=== PATIENT | female | born 1965 | race Caucasian/White ===

== ENCOUNTER 2017-11-20 05:39 | Inpatient (IN) | payer BC ==
[2017-11-20] MEDS ORDERED: LIDOCAINE 2% (SDV) 5 ML INJ (07:00)
[2017-11-20] MEDS ORDERED: GELATIN SIZE 100 SPONGE (07:06)
[2017-11-20] MEDS ORDERED: CEFAZOLIN 1 GM INJ (07:33)
[2017-11-20] MEDS ORDERED: PROPOFOL 20 ML ×2 (07:33→08:02)
[2017-11-20] MEDS ORDERED: METOCLOPRAMIDE 10 MG INJ (07:33)
[2017-11-20] MEDS ORDERED: MIDAZOLAM 1 MG/ML 2 ML INJ (07:33)
[2017-11-20] MEDS ORDERED: ONDANSETRON 4 MG INJ (07:33)
[2017-11-20] MEDS ORDERED: SUCCINYLCHOLINE CHLORIDE 100 MG/5 ML SYG IV (07:43)
[2017-11-20] MEDS ORDERED: ROCURONIUM 50 MG INJ (07:45)
[2017-11-20] MEDS ORDERED: FENTAnyl 50 MCG/ML VIAL (08:03)
[2017-11-20] MEDS ORDERED: ACETAMINOPHEN 1000MG/100ML IV 100 ML (08:07)
[2017-11-20] MEDS ORDERED: HYDROmorphONE 2 MG/ML SYG (08:26)
[2017-11-20] MEDS: THROMBIN 5000 UNIT VIAL (09:32)
[2017-11-20] MEDS: POLYMYXIN/BACITRACIN 1L IRRIG (09:32)
[2017-11-20] MEDS ORDERED: hydrALAzine 20 MG INJ IV (10:30)
[2017-11-20] MEDS ORDERED: HYDROmorphONE 1 MG/5 ML IV SYRINGE IV ×3 (10:30)
[2017-11-20] MEDS ORDERED: DIPHENHYDRAMINE 50 MG INJ IV (10:30)
[2017-11-20] MEDS ORDERED: MEPERIDINE 25 MG INJ IV (10:30)
[2017-11-20] MEDS ORDERED: LABETALOL HCL 20MG INJ IV (10:30)
[2017-11-20] MEDS ORDERED: ONDANSETRON 4 MG INJ IV ×3 (10:30→13:30)
[2017-11-20] MEDS ORDERED: EPHEDrine SULFATE 50 MG/5 ML SYG IV (10:30)
[2017-11-20] MEDS ORDERED: DEXAMETHASONE 4 MG/ML 1 ML INJ (11:10)
[2017-11-20] MEDS ORDERED: ZOLPIDEM 5 MG TAB PO (13:00)
[2017-11-20] MEDS ORDERED: BISACODYL 10 MG SUPP PR ×2 (13:00→13:30)
[2017-11-20] MEDS ORDERED: ACETAMINOPHEN 325 MG TAB PO ×2 (13:00→13:30)
[2017-11-20] MEDS ORDERED: HYDROCODONE/APAP (5/325) TAB PO ×3 (13:00→13:30)
[2017-11-20] MEDS ORDERED: CYCLOBENZAPRINE 10 MG TAB PO (13:00)
[2017-11-20] MEDS ORDERED: DIPHENHYDRAMINE 25 MG CAP PO (13:00)
[2017-11-20] MEDS ORDERED: NALOXONE (0.4 MG/ML) INJ IV (13:00)
[2017-11-20] MEDS ORDERED: HYDROmorphONE 0.5 MG/0.5 ML SYG IV (13:00)
[2017-11-20 13:25] LABS: ADD MAN DIFF? NO
[2017-11-20 13:27] LABS: BASOPHILS % 0.2 % (0.0-2.0); EOSINOPHILS % 0.1 % (0.0-7.0); HEMATOCRIT 36.8 % (37.0-47.0); HEMOGLOBIN 12.3 g/dl (12.0-16.0); HOLD TRANSMISSIONS 1; LYMPHOCYTES # 1.3 10^3/ul (0.8-2.9); LYMPHOCYTES % 10.4 % (15.0-51.0); MEAN CORPUSCULAR HEMOGLOBIN 30.5 pg (29.0-33.0); MEAN CORPUSCULAR HGB CONC 33.4 g/dl (32.0-37.0); MEAN CORPUSCULAR VOLUME 91.3 fl (82.0-101.0); MEAN PLATELET VOLUME 9.4 fl (7.4-10.4); MONOCYTE # 0.4 10^3/ul (0.3-0.9); MONOCYTES % 3.4 % (0.0-11.0); NEUTROPHIL # 10.4 10^3/ul (1.6-7.5); NEUTROPHILS % 85.5 % (39.0-77.0); PLATELET COUNT 238 10^3/UL (140-415); RED BLOOD COUNT 4.03 10^6/ul (4.20-5.40); RED CELL DISTRIBUTION WIDTH 12.5 % (11.5-14.5)
[2017-11-20 13:27] LABS: WHITE BLOOD COUNT 12.2 10^3/ul (4.8-10.8)
[2017-11-20] MEDS ORDERED: DOCUSATE SODIUM 100 MG CAP PO (13:30)
[2017-11-20] MEDS ORDERED: ACETAMINOPHEN 650 MG SUPP PR (13:30)
[2017-11-20] MEDS ORDERED: NACL 0.9% 3 ML SYG IV (13:30)
[2017-11-20] MEDS ORDERED: morphine 2 MG INJ IV (13:30)
[2017-11-20] MEDS ORDERED: MAGNESIUM HYDROXIDE 30ML CUP PO (13:30)
[2017-11-20 13:52] LABS: ALANINE AMINOTRANSFERASE 21 IU/L (13-69); ALBUMIN 4.1 g/dl (3.3-4.9); ALBUMIN/GLOBULIN RATIO 1.36; ALKALINE PHOSPHATASE 52 IU/L (42-121); ANION GAP 10 (8-16); ASPARTATE AMINO TRANSFERASE 25 IU/L (15-46); BILIRUBIN,INDIRECT 0.5 mg/dl (0-1.1); BILIRUBIN,TOTAL 0.5 mg/dl (0.2-1.3); BLOOD UREA NITROGEN 15 mg/dl (7-20); CALCIUM 9.3 mg/dl (8.4-10.2); CARBON DIOXIDE 22 mmol/L (21-31); CHLORIDE 110 mmol/L (97-110); CREATININE 0.74 mg/dl (0.44-1.00); GLUCOSE 115 mg/dl (70-220); POTASSIUM 4.1 mmol/L (3.5-5.1); SODIUM 138 mmol/L (135-144); TOTAL PROTEIN 7.1 g/dl (6.1-8.1)
[2017-11-20] MEDS: CEFAZOLIN 1 GM/50 ML (PMX) 50 ML IVPB ×2 (14:43→21:00)
[2017-11-20] MEDS: D5W-0.45 NACL + KCL 20 MEQ 1,000 ML IV ×2 (14:43→22:44)
[2017-11-20] MEDS: DOCUSATE SODIUM 100 MG CAP PO (20:57)
[2017-11-21] MEDS: HYDROCODONE/APAP (5/325) TAB PO (00:34)
[2017-11-21] MEDS: D5W-0.45 NACL + KCL 20 MEQ 1,000 ML IV ×2 (00:41→08:44)
[2017-11-21 05:13] LABS: WHITE BLOOD COUNT 9.6 10^3/ul (4.8-10.8)
[2017-11-21 05:13] LABS: ADD MAN DIFF? NO; BASOPHILS % 0.3 % (0.0-2.0); EOSINOPHILS % 0.1 % (0.0-7.0); HEMATOCRIT 33.8 % (37.0-47.0); HEMOGLOBIN 11.5 g/dl (12.0-16.0); LYMPHOCYTES # 2.6 10^3/ul (0.8-2.9); LYMPHOCYTES % 27.2 % (15.0-51.0); MEAN CORPUSCULAR HEMOGLOBIN 30.5 pg (29.0-33.0); MEAN CORPUSCULAR VOLUME 89.7 fl (82.0-101.0); MEAN PLATELET VOLUME 10.1 fl (7.4-10.4); MONOCYTE # 0.9 10^3/ul (0.3-0.9); NEUTROPHIL # 6.1 10^3/ul (1.6-7.5); NEUTROPHILS % 63.1 % (39.0-77.0); PLATELET COUNT 257 10^3/UL (140-415); RED BLOOD COUNT 3.77 10^6/ul (4.20-5.40); RED CELL DISTRIBUTION WIDTH 12.6 % (11.5-14.5)
[2017-11-21 05:46] LABS: ALANINE AMINOTRANSFERASE 21 IU/L (13-69); ALBUMIN 3.4 g/dl (3.3-4.9); ALBUMIN/GLOBULIN RATIO 1.25; ALKALINE PHOSPHATASE 42 IU/L (42-121); ANION GAP 9 (8-16); ASPARTATE AMINO TRANSFERASE 20 IU/L (15-46); BILIRUBIN,INDIRECT 0.6 mg/dl (0-1.1); BILIRUBIN,TOTAL 0.6 mg/dl (0.2-1.3); BLOOD UREA NITROGEN 8 mg/dl (7-20); CALCIUM 9.3 mg/dl (8.4-10.2); CARBON DIOXIDE 25 mmol/L (21-31); CHLORIDE 110 mmol/L (97-110); CHOL/HDL RATIO 2.3 RATIO; CHOLESTEROL 152 mg/dl (100-200); GLUCOSE 126 mg/dl (70-220); HDL CHOLESTEROL 65 mg/dl (37-92); LDL CHOLESTEROL,CALCULATED 75 mg/dl; MAGNESIUM 1.8 mg/dl (1.7-2.5); PHOSPHORUS 3.3 mg/dl (2.5-4.9); POTASSIUM 4.1 mmol/L (3.5-5.1); SODIUM 140 mmol/L (135-144); TOTAL PROTEIN 6.1 g/dl (6.1-8.1); TRIGLYCERIDES 60 mg/dl (0-149)
[2017-11-21 06:02] LABS: FREE THYROXINE INDEX (Calc) 2.49 ug/ml (0.65-3.89); T3 UPTAKE 36.6 % (23.5-40.5); T4 (THYROXINE) 6.8 ug/dl (5.5-11.0)
[2017-11-21] MEDS: PANTOPRAZOLE 40 MG INJ IV (06:09)
[2017-11-21] MEDS: CEFAZOLIN 1 GM/50 ML (PMX) 50 ML IVPB (06:09)
[2017-11-21 06:15] LABS: THYROID STIMULATING HORMONE 0.537 MIU/L (0.465-4.680)
[2017-11-21 06:25] LABS: HEMOGLOBIN A1C 5.7 % (0-5.9)
[2017-11-21] MEDS: DOCUSATE SODIUM 100 MG CAP PO (09:00)
== END 2017-11-21 12:06 | disposition home or self-care (01) | DRG 518 ==
LOC: REC 05:39 → MS1 13:31
PROC: 0RR30JZ Replacement of Cervical Vertebral Disc with Synthetic Substitute, Open Approach (ICD-10-PCS; principal; 2017-11-20 07:30)
PROC: 0RT30ZZ Resection of Cervical Vertebral Disc, Open Approach (ICD-10-PCS; 2017-11-20 07:30)
PROC: 0RP104Z Removal of Internal Fixation Device from Cervical Vertebral Joint, Open Approach (ICD-10-PCS; 2017-11-20 07:30)
PROC: 4A11X4G Monitoring of Peripheral Nervous Electrical Activity, Intraoperative, External Approach (ICD-10-PCS; 2017-11-20 07:30)
DX: M48.02 Spinal stenosis, cervical region (principal); T84.226A Displacement of internal fixation device of vertebrae, initial encounter; Z98.1 Arthrodesis status
CPT/HCPCS: 72040; 80053; 80061; 83036; 83735; 84100; 84436; 84443; 84479; 85025; 87086; 97116; 97161; 97530